=== PATIENT | male | born 1960 | race Caucasian/White ===

== ENCOUNTER 2016-06-25 16:15 | Outpatient (RCR) | payer OTHER, BC ==
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
[~2016-06-25 16:15] MED LIST: CYCL10TA45 PO; HYDR-3811 PO; HYDR-707 PO; PRED10TA PO; ZLP10T PO
== END 2016-07-06 09:56 | disposition home or self-care (01) ==
LOC: PT 16:15
PROVIDERS: ATTEND Family Medicine
DX: M54.5 Low back pain (principal); M53.3 Sacrococcygeal disorders, not elsewhere classified
CPT/HCPCS: 97001; 97012; 97033; 97035; 97110; 97140; G0283; 97014

== ENCOUNTER → 2016-07-07 | Outpatient (CLI) | payer BC ==
[2016-07-07 12:58] VITALS: BP 119/80
--- NOTE | 2016-07-07 12:58 | Urgent Care T Sheet Gen (E) ---
Intake General Temperature (Fahrenheit): 97.7 Pulse: 73 Blood Pressure Systolic: 119 Blood Pressure Diastolic: 80 Respirations: 18 SPO2: 98 Description of Symptoms Patient presents with illness x 3 days. Notes chest congestion with productive cough, PND and sore throat. No fever. Been treating symptoms with Zicam and Tylenol. Is leaving town in a few days and wanted to be seen before. History of Present Illness Allergies: Coded Allergies: No Known Drug Allergies (Unverified , 03/18/16) Home Meds Active Scripts Hydrocodone Bit/Acetaminophen (Hydrocodon-Acetaminophen 7.5-325)1 Each Tablet1 Each PO Q4H PRN PAIN #20 TAB Ref 0 Prov:SARA SIN MD 03/18/16 Cyclobenzaprine HCl (Flexeril)10 Mg [id number] Mg PO TID PRN MUSCLE SPASMS #21 TAB Ref 0 Prov:SARA SIN MD 03/18/16 Respiratory Constitutional Symptoms: No syptoms reported EENTM: Nose Congestion Throat pain Respiratory: Cough Cardiovascular: No symptoms reported Gastrointestinal/Abdominal: No symptoms reported All Other Systems Reviewed Remaining Systems: All other systems reviewed with negative findings Past Xkagnrl-Rwdhky-Klrrjh Hx Patient's Social History Alcohol Use: Past History Smoking Status: Former smoker Recent foreign travel: No Surgeries/Hospitalizations Hospitalization/Surgery Hx: Surgical HX LUMBAR SURGERY FOR HERNIATED DISC, L5-S1 OPENED UP, Neck C3-6 FUSION, Lt and RT knees (multiple) Lt Rt shoulder (3) shoulder (3), 3 HAND SURGERY, eye, Gallbladder, testical and vasectomy, APPENDECTOMY Respiratory Respiratory History: None Comment: strep throat and sinus infection Cardiovascular Cardiovascular History: None Neuro/Muscular Neuro/Muscular History: Back Problems Reproductive System Sexually Transmitted Diseases: No Genitouinary Genitourinary History: None Gastrointestinal GI/Endocrine History: None Diabetes Diabetes: No HEENT Impaired Vision: Glasses Hearing Impaired: None Integumentary Integumentary History: Other, see comments, None Comment: lac Lt hand Cancer History of Cancer?: No Psychosocial Behavior Disorders: None Physical Exam Physical Exam General Appearance: WD/WN No apparent distress Eyes, Ears, Nose, Throat Ex: TMs normal Pharyngeal erythema (cobblestone appearance) Other (clear, thin drainage) Neck Exam: SuppleNo Lymphadenopathy Respiratory Exam: Lungs clear Normal breath sounds Cardiovascular Exam: Regular rate, rhythm Departure Urgent Care Impression Impression: Primary Impression: URI (upper respiratory infection) Qualified Code: J00 - Acute nasopharyngitis [common cold] Departure Disposition: HOME OR SELF-CARE Condition: Stable Referrals: TAMIE DE LOS SANTOS MD (PCP) Additional Instructions: Patient appears to have a viral URI. Will treat symptomatically. Suggested he take Mucinex or Robitussin to help with the congestion and cough. If no better by Tuesday, he may fill the ZPak prescription I have also sent home. Return if no better or f/u with PCP Patient understands DC instructions. All questions were answered. End of report . SOCORRO URBINA Jul 07, 2016 12:58
== END ==
LOC: MHUC 12:43
PROVIDERS: ATTEND Physician Assistant
DX: J00 Acute nasopharyngitis [common cold] (principal)
CPT/HCPCS: 99213

== ENCOUNTER → 2016-07-27 | Outpatient (CLI) | payer OTHER, BC ==
[~2016-07-27] MED LIST changes: -CYCL10TA45 PO; -HYDR-3811 PO; -HYDR-707 PO; -PRED10TA PO; -ZLP10T PO; +methylPREDNISolone 80 MG/ML (DEPO MEDROL) VIAL IM ONE
== END ==
LOC: EDSTATUS 14:00 → PMC 14:13
PROVIDERS: ATTEND Family Medicine
PROC: 3E0R33Z Introduction of Anti-inflammatory into Spinal Canal, Percutaneous Approach (ICD-10-PCS; principal; 2016-07-27)
DX: M54.5 Low back pain (principal); M54.16 Radiculopathy, lumbar region

== ENCOUNTER → 2016-09-30 | Outpatient (CLI) | payer OTHER, BC ==
[~2016-09-30] MED LIST changes: +CYCL10TA45 PO; +HYDR-3811 PO; +HYDR-707 PO; +PRED10TA PO; +ZLP10T PO; -methylPREDNISolone 80 MG/ML (DEPO MEDROL) VIAL IM ONE
--- NOTE | 2016-09-30 13:34 | Diagnostic Imaging Report ---
PROCEDURE: MRI lumbar spine with and without contrast. TECHNIQUE: Multiplanar, multisequence MRI of the lumbar spine was performed with and without contrast. INDICATION: Low back pain. Right lower extremity radiculopathy. COMPARISON: None. FINDINGS: There are 5 lumbar-type vertebral bodies presumed for the purposes of this report. Normal alignment. Vertebral body heights are maintained. Benign hemangioma in the L5 vertebral body. Bone marrow signal is otherwise unremarkable. No abnormal signal or enhancement in the conus which terminates at L1. Normal configuration of the cauda equina without evidence of arachnoiditis. The visualized paravertebral soft tissues are unremarkable. At L3-L4, a right subarticular and foraminal disc protrusion effaces the right lateral recess and contributes to moderate right neuroforaminal narrowing. No substantial spinal canal or left lateral recess or neuroforaminal narrowing at this level. At L4-L5, a tiny right foraminal disc protrusion and facet arthropathy both contribute to moderate neuroforaminal narrowing. There is no substantial spinal canal, lateral recess or left neuroforaminal narrowing at this level. The remaining levels of the lumbar spine demonstrate no substantial spondylotic change or neural impingement. IMPRESSION: 1. A disc protrusion at L3-L4 could account for both right L3 and L4 radiculopathy. 2. Moderate narrowing of the right L4-L5 neuroforamen could also contribute to a right L4 radiculopathy. 3. No other substantial spondylotic change or neural impingement in the lumbar spine. Dictated by: Dictated on workstation # [id number]
== END ==
LOC: RAD 09:53
PROVIDERS: ATTEND Family Medicine
DX: M54.16 Radiculopathy, lumbar region (principal)
CPT/HCPCS: 72158; A9579